=== PATIENT | female | born 1945 | race American Indian/Alaskan Native ===

== ENCOUNTER 2019-04-10 17:16 | Emergency (ER) | payer MEDICARE ==
[2019-04-10 17:44] VITALS: BP 155/65
--- NOTE | 2019-04-10 17:45 | Emergency Department Report ---
Blank Doc - Documentation Documentation: 73 y o female presents to Ed right hand pain x tuesday after accidentally hitting it coming down the stairs xray ACC eval
--- NOTE | 2019-04-10 18:50 | XRay Report ---
PROCEDURE: XR HAND 3+V RT TECHNIQUE: Frontal, lateral, oblique views right hand HISTORY: pain COMPARISONS: None FINDINGS: There is evidence of degenerative change of the distal interphalangeal joints of all digits with join t space loss and osteophyte formation. There is evidence of degenerative change of the thumb carpal metacarpal and metacarpophalangeal joint s with joint space loss. There is no evidence of fracture or subluxation. There appears to be soft tissue swelling on the dorsal aspect of the hand. IMPRESSION: 1. Evidence of degenerative joint change with in a pattern suggestive of osteoarthritis. 2. No plain film evidence of an acute bony abnormality. This document is electronically signed by Dahlia Dasilva MD., Apr 10 2019 06:48:23 PM ET
[2019-04-10] MEDS ORDERED: TYLENOL PO ONE (19:50)
--- NOTE | 2019-04-10 19:55 | Emergency Department Report ---
Upper Extremity - HPI Chief Complaint: Extremity Injury, Upper Stated Complaint: XRAY ON R HAND Time Seen by Provider: 04/10/19 17:41 Upper Extremity: Right Hand Occurred When: Today Mechanism: Hit with Object Severity: moderate Symptoms: Yes Pain with Movement, Yes Swelling, No Deformity, No Limited Range of Movement, No Numbness, No Weakness, No Bruising/Ecchymosis, No Laceration or Abrasion Other History: pt is 73 y/o aaf with hx of arthralgia who presents for right hand pain s /p hand versus hand rail at home pain / 3rd metacarpal region mild swelling pain exacerbated by flexion and extension there is no weakness no numbness no bleeding ED Review of Systems ROS: Stated complaint: XRAY ON R HAND Other details as noted in HPI Constitutional: denies: chills, fever Eyes: denies: eye pain, eye discharge, vision change ENT: denies: ear pain, throat pain Respiratory: denies: cough, shortness of breath, wheezing Cardiovascular: denies: chest pain, palpitations Endocrine: no symptoms reported Gastrointestinal: denies: abdominal pain, nausea, diarrhea Genitourinary: denies: urgency, dysuria, discharge Musculoskeletal: joint swelling, arthralgia Skin: denies: rash, lesions Neurological: denies: headache, weakness, paresthesias Psychiatric: denies: anxiety, depression Hematological/Lymphatic: denies: easy bleeding, easy bruising ED Past Medical Hx - Past Medical History Hx Hypertension: Yes Hx Psychiatric Treatment: Yes (depression) Additional medical history: DVT - Surgical History Additional Surgical History: tubal ligation - Social History Smoking Status: Current Some Day Smoker Substance Use Type: None - Medications Home Medications: Home Medications Medication Instructions Recorded Confirmed Last Taken Type Acetaminophen [Acetaminophen TAB] 1,000 mg PO Q6HR PRN #30 tablet 04/10/19 Unknown Rx Diclofenac 1% [Diclofenac 1% 1 applic TP QID PRN #1 tube 04/10/19 Unknown Rx topical gel] Upper Extremity Exam - Exam General: Vital signs noted. No distress. Alert and acting appropriately. Head and Torso: No HEENT Abnormality, No Neck Tenderness, No Chest/Lungs Abnormality, No Abdominal Tenderness, No Back Tenderness Shoulder Exam: Yes Normal Range of Motion in Shoulder, No Shoulder Tenderness, No Clavicle Tenderness, No Shoulder Deformity, No AC Joint Tenderness Arm Exam: No Arm/Humerus Tenderness, No Arm Deformity Elbow: No Elbow Tenderness, No Normal Range of Motion in Elbow, No Elbow Deformity Forearm: No Forearm Tenderness, No Forearm Deformity, No Pain with Pronation, No Pain with Supination Wrist: Yes Normal ROM in Wrist, No Wrist Tenderness, No Wrist Deformity, No Snuffbox Tenderness, No Pain with Axial Thumb Compression Hand: Yes Hand Tenderness, Yes Digit Tenderness, Yes Normal ROM in Digit(s), No Hand Deformity, No Digit(s) Deformity, No Tendon Dysfunction CMS Exam: Yes Normal Distal Pulses, Yes Normal Capillary Refill, Yes Normal Distal Sensation, No Broken Skin ED Course Vital Signs 04/10/19 17:41 Temperature 98.8 F Pulse Rate 86 Respiratory 18 Rate Blood Pressure 155/65 [Right] O2 Sat by Pulse 100 Oximetry ED Medical Decision Making - Radiology Data Radiology results: report reviewed, image reviewed Ordering Physician: SHARMAINE REESE Date of Service: 04/10/19 Procedure(s): XR hand 3+V RT Accession Number(s): [id number] cc: SHARMAINE REESE Fluoro Time In Minutes: PROCEDURE: XR HAND 3+V RT TECHNIQUE: Frontal, lateral, oblique views right hand HISTORY: pain COMPARISONS: None FINDINGS: There is evidence of degenerative change of the distal interphalangeal joints of all digits with joint space loss and osteophyte formation. There is evidence of degenerative change of the thumb carpal metacarpal and metacarpophalangeal joints with joint space loss. There is no evidence of fracture or subluxation. There appears to be soft tissue swelling on the dorsal aspect of the hand. IMPRESSION: 1. Evidence of degenerative joint change with in a pattern suggestive of osteoarthritis. 2. No plain film evidence of an acute bony abnormality. This document is electronically signed by Dahlia Dasilva MD., Apr 10 2019 06:48:23 PM ET Transcribed By: ED Dictated By: DAHLIA DASILVA MD Electronically Authenticated By: DAHLIA DASILVA MD Signed Date/Time: 04/10/191849 DD/ 43 TD/TT: 04/10/191809 - Medical Decision Making hand xray normal , degenerative arthritis, this is finger versus hand sprain plan tylenol, voltaren oint, follow up with pcp in 2-3 days return to ed if symptoms worsen. pt verbalized agreement an understanding of same Critical care attestation.: If time is entered above; I have spent that time in minutes in the direct care of this critically ill patient, excluding procedure time. ED Disposition Clinical Impression: Hand sprain Qualifiers: Encounter type: initial encounter Laterality: right Qualified Code(s): S63.91XA - Sprain of unspecified part of right wrist and hand, initial encounter Disposition: TO HOME OR SELFCARE Is pt being admited?: No Does the pt Need Aspirin: No Condition: Stable Instructions: Hand Sprain (ED) Prescriptions: Acetaminophen [Acetaminophen TAB] 1,000 mg PO Q6HR PRN #30 tablet PRN Reason: pain Diclofenac 1% [Diclofenac 1% topical gel] 1 applic TP QID PRN #1 tube PRN Reason: pain Referrals: KAYLI PELAEZ MD [Staff Physician] - 3-5 Days Forms: Work/School Release Form(ED) Time of Disposition: 20:05
== END 2019-04-10 20:50 | disposition home or self-care (01) ==
LOC: ED 17:16
DX: S63.91XA Sprain of unspecified part of right wrist and hand, initial encounter (principal); I10 Essential (primary) hypertension; F32.9 Major depressive disorder, single episode, unspecified; F17.200 Nicotine dependence, unspecified, uncomplicated; Z98.51 Tubal ligation status; Z86.718 Personal history of other venous thrombosis and embolism; Z88.2 Allergy status to sulfonamides; W22.8XXA Striking against or struck by other objects, initial encounter; Y93.89 Activity, other specified; Y92.019 Unspecified place in single-family (private) house as the place of occurrence of the external cause; Y99.8 Other external cause status
CPT/HCPCS: 99283

== ENCOUNTER 2020-01-03 13:41 | Emergency (ER) | payer MEDICARE ==
[2020-01-03 14:19] VITALS: BP 158/63
--- NOTE | 2020-01-03 14:38 | Emergency Department Report ---
ED Recheck HPI - General Chief Complaint: Recheck/Abnormal Lab/Rx Stated Complaint: MED REFILL Time Seen by Provider: 01/03/20 14:34 Source: patient Mode of arrival: Ambulatory Limitations: No Limitations - History of Present Illness Initial Comments: This is a 74-year-old female nontoxic, well nourished in appearance, no acute signs of distress presents to the ED for medication refill. Patient stated does have PCP and stated that she was referred to psych for medication refill of Lorazepam. Patient stated has intermittent anxiety but not right now. Denies any SI/HI. Patient denies any chest pain, shortness of breath, fever, chills, nausea, vomiting, headache, stiff neck, numbness, tingling. Patient denies any sypmtoms. MD Complaint: medication refill request Returns Today for: request for prescription Symptoms Since Prior Visit: no new symptoms Associated Symptoms: none. denies: fever, chills, chest pain, shortness of breath, rash, malaise, nasuea, abdominal pain - Related Data Previous Rx's Medication Instructions Recorded Last Taken Type Acetaminophen [Acetaminophen TAB] 1,000 mg PO Q6HR PRN #30 tablet 04/10/19 Unknown Rx Diclofenac 1% [Diclofenac 1% 1 applic TP QID PRN #1 tube 04/10/19 Unknown Rx topical gel] Allergies Allergy/AdvReac Type Severity Reaction Status Date / Time Sulfa (Sulfonamide Allergy Hives Verified 04/10/19 17:22 Antibiotics) ED Review of Systems ROS: Stated complaint: MED REFILL Other details as noted in HPI Constitutional: denies: chills, fever Eyes: denies: eye pain, eye discharge, vision change ENT: denies: ear pain, throat pain Respiratory: denies: cough, shortness of breath, wheezing Cardiovascular: denies: chest pain, palpitations Endocrine: no symptoms reported Gastrointestinal: denies: abdominal pain, nausea, diarrhea Genitourinary: denies: urgency, dysuria, discharge Musculoskeletal: denies: back pain, joint swelling, arthralgia Skin: denies: rash, lesions Neurological: denies: headache, weakness, paresthesias Psychiatric: denies: anxiety, depression Hematological/Lymphatic: denies: easy bleeding, easy bruising ED Past Medical Hx - Past Medical History Hx Hypertension: Yes Hx Psychiatric Treatment: Yes (depression) Additional medical history: DVT - Surgical History Additional Surgical History: tubal ligation - Social History Smoking Status: Current Some Day Smoker Substance Use Type: None - Medications Home Medications: Home Medications Medication Instructions Recorded Confirmed Last Taken Type Acetaminophen [Acetaminophen TAB] 1,000 mg PO Q6HR PRN #30 tablet 04/10/19 Unknown Rx Diclofenac 1% [Diclofenac 1% 1 applic TP QID PRN #1 tube 04/10/19 Unknown Rx topical gel] ED Physical Exam - General Limitations: No Limitations General appearance: alert, in no apparent distress - Head Head exam: Present: atraumatic, normocephalic - Neck Neck exam: Present: normal inspection, full ROM - Respiratory Respiratory exam: Present: normal lung sounds bilaterally. Absent: respiratory distress, wheezes, rales, rhonchi, stridor, chest wall tenderness, accessory muscle use, decreased breath sounds, prolonged expiratory - Cardiovascular Cardiovascular Exam: Present: regular rate, normal rhythm, normal heart sounds. Absent: bradycardia, tachycardia, irregular rhythm, systolic murmur, diastolic murmur, rubs, gallop - Extremities Exam Extremities exam: Present: full ROM - Back Exam Back exam: Present: full ROM. Absent: tenderness, CVA tenderness (R), CVA tenderness (L), muscle spasm, paraspinal tenderness, vertebral tenderness, rash noted - Neurological Exam Neurological exam: Present: alert, oriented X3, normal gait - Psychiatric Psychiatric exam: Present: normal affect, normal mood. Absent: depressed, agitated, anxious, flat affect, manic, homicidal ideation, suicidal ideation - Skin Skin exam: Present: warm, dry, intact, normal color. Absent: rash ED Course Vital Signs 01/03/20 14:17 Temperature 99.1 F Pulse Rate 83 Respiratory 18 Rate Blood Pressure 158/63 O2 Sat by Pulse 98 Oximetry - Reevaluation(s) Reevaluation #1: 01/03/20 15:02 Patient is speaking in full sentences with no signs of distress noted. ED Recheck MDM - Medical Decision Making 44-year-old female that presents with a non-medical emergency. Patient is stable and was examined by me. Patient is currently asymptomatic. I did refer patient to different referrals that can refill this medication. At time of discharge, the patient does not seem toxic or ill in appearance. No acute signs of distress noted. Patient agrees to discharge treatment plan of care. No further questions noted by the patient. Critical care attestation.: If time is entered above; I have spent that time in minutes in the direct care of this critically ill patient, excluding procedure time. ED Disposition Clinical Impression: Medication refill Disposition: MED SCREENING EXAM-LEFT Is pt being admited?: No Does the pt Need Aspirin: No Condition: Stable Additional Instructions: Follow-up with a primary care doctor in 3-5 days or if symptoms are worsen and continue return to the ED as soon as possible. Referrals: PRIMARY CAREMD [Referring] - 3-5 Days TARA VIRGEN MD [Staff Physician] - 3-5 Days [facility] [Outside] - 3-5 Days
== END 2020-01-03 14:49 | disposition left against medical advice (07) ==
LOC: ED 13:41
DX: F32.9 Major depressive disorder, single episode, unspecified (principal); F17.200 Nicotine dependence, unspecified, uncomplicated; Z76.0 Encounter for issue of repeat prescription; Z95.1 Presence of aortocoronary bypass graft; Z79.899 Other long term (current) drug therapy; Z88.2 Allergy status to sulfonamides
CPT/HCPCS: 99281